=== PATIENT | male | born 1975 | race Caucasian/White ===

== ENCOUNTER 2017-05-02 17:00 | Inpatient (IN) | payer OTHER ==
[2017-05-01 20:35] VITALS: BP 152/90
[~2017-05-02] VITALS: Ht 182.9 cm; Wt 139.9 kg
--- NOTE | 2017-05-02 17:00 | NUR ---
PT BIB [facility]. PT HAD RT SIDED NECK SURGERY WITH BONE GRAFT FROM LT HIP. SURGERY WAS AT 0630AM AND PT'S BP WAS NOT STABLE IN THE RECOVERY. PT REC'D 0.5MG DILAUDID AT 1349 DURING RECOVERY. PT ARRIVED IN C-COLLAR AND HAS A DRAINAGE FROM THE NECK. PT WENT TO ROOM #4 AND WAS PLACED ON THE MONITOR AND CONTINUOUS PULSE OX. VSS.
--- NOTE | 2017-05-02 17:00 | NUR ---
HEMOVAC DRAINAGE NOTED ON PT'S WOUND.
--- NOTE | 2017-05-02 17:15 | NUR ---
400ML YELLOW URINE REMOVED FROM WILDE BAG.
[2017-05-02] MEDS ORDERED: HYDROMORPHONE INJ 2 MG/ML DISP.SYRIN ONE ×2 (17:28→18:51)
--- NOTE | 2017-05-02 17:29 | NUR ---
PT WAS PLACED ON 2L O2 VIA NC. PT'S O2 SAT WAS 92% -95% ON RA.
--- NOTE | 2017-05-02 17:29 | NUR ---
PT REC'D MEDICATION ORDERED.
[2017-05-02] MEDS ORDERED: HYDROMORPHONE 1 MG/1 ML DISP.SYRIN IV ONE (17:30)
--- NOTE | 2017-05-02 18:10 | NUR ---
DR. CHRISTINE IS AT THE BEDSIDE SPEAKING TO THE PT AND HIS FAMILY.
--- NOTE | 2017-05-02 18:22 | NUR ---
PAGED CHEESE PACKER PANEL DR WHITE
[2017-05-02] MEDS ORDERED: ACET1TAB14 PO (18:29)
[2017-05-02] MEDS ORDERED: GABA-534 PO (18:29)
[2017-05-02] MEDS ORDERED: LANS15CA5 PO (18:29)
[2017-05-02] MEDS ORDERED: DAPA10TA PO (18:29)
[2017-05-02] MEDS ORDERED: LISI-607 PO (18:29)
[2017-05-02] MEDS ORDERED: CYCL5TAB PO (18:29)
[2017-05-02] MEDS ORDERED: HYDROMORPHONE INJ 2 MG/ML DISP.SYRIN IV ONE (18:30)
--- NOTE | 2017-05-02 18:36 | NUR ---
CALLED NURSING SUP. FOR MS BED
--- NOTE | 2017-05-02 18:45 | NUR ---
1000ML YELLOW URINE OUTPUT REMOVED FROM WILDE BAG.
--- NOTE | 2017-05-02 18:46 | NUR ---
CXRAY IN PROGRESS AT THE BEDSIDE.
[2017-05-02 18:50] LABS: BASOPHILS # (AUTO) 0.1 /CMM (0.0-0.2); BASOPHILS % (AUTO) 0.3 % (0.0-2.0); EOSINOPHILS % (AUTO) 0.1 % (0.0-6.0); HEMATOCRIT 49 % (39-51); HEMOGLOBIN 16.6 g/dL (13.5-17.5); LYMPHOCYTES # (AUTO) 0.6 /CMM (0.8-4.8); LYMPHOCYTES % (AUTO) 3.8 % (20.0-44.0); MEAN CORPUSCULAR HEMOGLOBIN 31 PG (26.0-33.0); MEAN CORPUSCULAR HGB CONC 34 g/dl (31.0-36.0); MEAN CORPUSCULAR VOLUME 92 fL (80-96); MONOCYTES # (AUTO) 0.1 /CMM (0.1-1.30); MONOCYTES % (AUTO) 0.8 % (2.0-12.0); NEUTROPHILS # (AUTO) 16.2 /CMM (1.8-8.9); PLATELET COUNT (AUTO) 234 /CMM (150-450); RED BLOOD CELL COUNT(AUTO) 5.37 MIL/uL (4.5-6.0)
--- NOTE | 2017-05-02 18:50 | NUR ---
DR. WHITE IS AT THE BEDSIDE.
[2017-05-02] MEDS ORDERED: GABAPENTIN 100 MG CAPSULE ONE (18:51)
[2017-05-02 18:54] LABS: CALCIUM, SERUM 9.7 mg/dL (8.5-10.1); CREATININE 1.2 mg/dL (0.6-1.3); POTASSIUM 4.5 mmol/L (3.5-5.1)
--- NOTE | 2017-05-02 18:57 | NUR ---
PT REC'D MEDICATION ORDERED.
[2017-05-02] MEDS ORDERED: MAGNESIUM HYDROXIDE 30 ML UDC PO PRN (19:00)
[2017-05-02] MEDS ORDERED: ONDANSETRON HCL/PF 4 MG/2 ML VIAL IVP PRN (19:00)
[2017-05-02] MEDS ORDERED: ACETAMINOPHEN 325 MG TABLET PO PRN (19:00)
[2017-05-02] MEDS ORDERED: Z GUARD REMEDY 2 OZ OINT TP PRN (19:00)
[2017-05-02] MEDS ORDERED: MAG HYDROX/AL HYDROX/SIMETH 30 ML UDC PO PRN (19:00)
[2017-05-02] MEDS ORDERED: HYDROCODONE/APAP 5/325MG 1 EACH TABLET PO PRN (19:00)
[2017-05-02] MEDS ORDERED: DEXTROSE 50%-WATER 50 ML DISP.SYRIN IV PRN (19:00)
--- NOTE | 2017-05-02 19:14 | NUR ---
REPORT GIVEN TO HANNAH GIBSON
--- NOTE | 2017-05-02 19:33 | NUR ---
BED 119-2
--- NOTE | 2017-05-02 19:43 | NUR ---
Report given to Yani YOUNG for admission and [place].
[2017-05-02] MEDS ORDERED: hydrALAZINE HCL IV 20 MG VIAL IV PRN (20:00)
--- NOTE | 2017-05-02 20:29 | NUR ---
Transferred patient to floor no incident noted, family at bedside. Endorsed to RN.
--- NOTE | 2017-05-02 20:40 | NUR ---
RN ADMITTING NOTES RECEIVED PATIENT FROM ER VIA [facility]AN WITH FAMILY AT BEDSIDE. PATIENT IS FROM [facility] FOR HIGHER LEVEL OF CARE AND CLOSE MONITORING, PATIENT IS S/P ANTERIOR CERVICAL DISCECTOMY AND FUSION WITH INSTRUMENTATION OF C5-C6 AND C6-C7 WITH BONE GRAFT TAKEN FROM THE LEFT HIP. PATIENT ADMITTED WITH C-COLLAR IN PLACE, HEMOVAC ON POSTERO-LATERAL OF THE NECK DRAINING SANGUINEOUS FLUID; WITH INTACT SURGICAL DRESSINGS ON NECK AND L HIP, NO SOILAGE NOTED, INTACT AND KEPT CLEAN. PATIENT IS ALERT AND ORIENTED. C/O PAIN/DISCOMFORT ON NECK AND L HIP WITH TRANSFER. REPOSITIONED PATIENT COMFORTABLY, SAFETY ENSURED. ORIENTED TO UNIT PROTOCOLS. PATIENT WITH NO OTHER SKIN BREAKDOWN NOTED. FAMILY AT BEDSIDE. UPDATED WITH PLAN OF CARE NEEDED. PATIENT'S VS MONITORED AND DOCUMENTED. PATIENT PLACED ON TELE DUE TO RECEIVED REPORT FROM ER THAT PATIENT IS ST 110-120s, WITH BP OF 157/90 AND PATIENT WITH ADMITTING DIAGNOSIS OF ACCELERATED HTN. WILL MONITOR CLOSELY.
[2017-05-02] MEDS: IV NS 0.9% 1,000 ML IV SCH (21:22)
[2017-05-02] MEDS: METOPROLOL TARTRATE 25 MG TABLET PO SCH (21:22)
[2017-05-02] MEDS: BLOOD SUGAR DIAGNOSTIC 1 EACH STRIP VI SCH (21:24)
[2017-05-02] MEDS: *INSULIN REGULAR(HUMULIN R)HUM 100 UNIT/ML VIAL SQ PRN (21:25)
[2017-05-02] MEDS: HYDROMORPHONE INJ 2 MG/ML DISP.SYRIN IV PRN (21:26)
--- NOTE | 2017-05-02 21:30 | NUR ---
RN NOTES HS MEDS GIVEN ORDERED. IVF STARTED ORDERED ON THE PATIENT'S L HAND, FLUSHED AND PATENT. PATIENT ALSO MEDICATED WITH DILAUDID FOR C/O 01/30 ON NECK AND L HIP PAIN. PATIENT'S BS CHECKED AND NOTED TO BE 131. PATIENT REFUSED INSULIN, PER PATIENT HE DOES NOT USE INSULIN. AND PATIENT REPORTS THAT HE HAS NOT EATEN SINCE 4PM YESTERDAY. SNACKS GIVEN AT THIS TIME, SOFT DIET INITIATED FOR S/P SURGERY THIS AM. PATIENT ABLE TO TOLERATE, NO ASPIRATION NOTED.
[2017-05-02 21:35] VITALS: BP 152/90
[2017-05-02] MEDS ORDERED: ZOLPIDEM TARTRATE 5 MG TABLET PO PRN (22:00)
[2017-05-02] MEDS: HYDROCODONE/APAP 10/325MG 1 EA TABLET PO PRN (22:42)
--- NOTE | 2017-05-02 22:45 | NUR ---
RN NOTES PATIENT WAS SLEEPING COMFORTABLY POST DILAUDID ADMINISTRATION WHEN PATIENT WOKE UP CRYING AND COMPLAINING OF CHEST PAIN AT 2230. PATIENT IMMEDIATELY ASSESSED, VS: 162/90, 124, 92% ON 2LPM OF O2 VIA NC. PATIENT REPORTS NON-RADIATING MIDSTERNAL CHEST PAIN. TITRATED O2 TO PATIENT'S COMFORT, WITH HELP. REASSURANCE PROVIDED TO PATIENT, FAMILY AT BEDSIDE. ADMINISTERED NORCO 10/325 PRN. WILL MONITOR FOR EFFECTIVENESS. CALLED AND SPOKE WITH JET LERMA DNP. UPDATED OF THE PATIENT'S CONDITION WITH ORDERS OBTAIN TO KEEP PATIENT ON TELEMETRY AND CHECK PATIENT'S TROPONIN IN 4HOURS. ORDERS NOTED AND CARRIED OUT. PATIENT UPDATED OF PLAN OF CARE.
[2017-05-03] VITALS (7 sets, daily range): BP systolic 118–139; BP diastolic 68–88
[2017-05-03] MEDS: LORAZEPAM INJ 2 MG/ML VIAL IV PRN ×2 (00:04→21:56)
[2017-05-03 03:19] LABS: BASOPHILS % (AUTO) 0.1 % (0.0-2.0); HEMATOCRIT 46 % (39-51); HEMOGLOBIN 15.5 g/dL (13.5-17.5); LYMPHOCYTES # (AUTO) 1.4 /CMM (0.8-4.8); LYMPHOCYTES % (AUTO) 8.6 % (20.0-44.0); MEAN CORPUSCULAR HEMOGLOBIN 31 PG (26.0-33.0); MEAN CORPUSCULAR HGB CONC 34 g/dl (31.0-36.0); MEAN CORPUSCULAR VOLUME 93 fL (80-96); MONOCYTES # (AUTO) 0.5 /CMM (0.1-1.30); MONOCYTES % (AUTO) 3.3 % (2.0-12.0); PLATELET COUNT (AUTO) 219 /CMM (150-450); RDW COEFFICIENT OF VARIATION 14.8 (11.5-15.0); RED BLOOD CELL COUNT(AUTO) 4.96 MIL/uL (4.5-6.0); WHITE BLOOD COUNT (AUTO) 15.9 K/uL (4.3-11.0)
[2017-05-03 03:33] LABS: CALCIUM, SERUM 9.5 mg/dL (8.5-10.1); CREATININE 1.1 mg/dL (0.6-1.3); MAGNESIUM 2.3 mg/dL (1.8-2.4); PHOSPHORUS 4.1 mg/dL (2.5-4.9); POTASSIUM 4.2 mmol/L (3.5-5.1)
[2017-05-03] MEDS: HYDROMORPHONE INJ 2 MG/ML DISP.SYRIN IV PRN ×3 (03:49→19:39)
--- NOTE | 2017-05-03 06:35 | NUR ---
RN CLOSING NOTES PATIENT INTERMITTENTLY SLEPT THROUGH THE NIGHT, ATIVAN PRN GIVEN WITH HELP FOR THE PATIENT, PER PATIENT, HE WAS ABLE TO SLEEP FOR 1-2HOURS POST ATIVAN. PATIENT'S TROPONIN <0.017, PATIENT WITH NO FURTHER COMPLAIN OF CHEST PAIN. PATIENT MEDICATED WITH DILAUDID PRN ORDERED, WITH HELP. PATIENT SLEEPING COMFORTABLY AT THIS TIME. ON 2LPM OF O2 VIA NC, NO DISTRESS AND DISCOMFORT. SR ON TELE WITH HR AT 87-96. F/C INTACT AND DRAINING WELL. NEEDS ANTICIPATED AND MET. SAFETY AND COMFORT ENSURED. C-COLLAR IN PLACE, HEMOVAC DRAINING WITH SANGUINOUS FLUID. CALL LIGHT IN REACH. WILL ENDORSE ACCORDINGLY FOR CONTINUITY OF CARE.
--- NOTE | 2017-05-03 07:30 | NUR ---
RN AM NOTES PATIENT AAO X 4, C COLLAR IN PLACE, S/P ANTERIOR CERVICAL DISCKEKTOMY AND FUSION WITH INSTRUMENTATION, S/P BONE GRAFT SURGERY [ FROM HIP GRAFT TO NECK]. ALL PROCEDURES DONE AT [facility]. SURGICAL SITE WITH HEMO VAC DRAIN IN PLACE, SANGUINOUS DRAINAGE. ON 2 LPM O2 NC, ON AND OFF, TELEMETRY READS SINUS TACH 105, C/O TOLERABLE PAIN TO NECK AREA. NS AT 75 ML/HR INFUSING TO LEFT HAND G20, SITE CLEAR. CALL LIGHT WITHIN REACH, BED LOW LOCKED, AT BEDSIDE.
[2017-05-03] MEDS: BLOOD SUGAR DIAGNOSTIC 1 EACH STRIP VI SCH ×4 (08:06→21:53)
[2017-05-03] MEDS: PANTOPRAZOLE 40 MG TABLET.DR PO SCH (08:06)
--- NOTE | 2017-05-03 08:06 | NUR ---
RN NOTES ACCUCHECK DONE. BS 124 MG/DL. NO INSULIN COVERAGE GIVEN.
[2017-05-03] MEDS: GABAPENTIN 300 MG CAPSULE PO SCH ×3 (09:18→17:09)
[2017-05-03] MEDS: METOPROLOL TARTRATE 25 MG TABLET PO SCH ×2 (09:19→17:11)
[2017-05-03] MEDS: LISINOPRIL (5MG) 5 MG TABLET PO SCH (09:19)
[2017-05-03] MEDS: CYCLOBENZAPRINE 10 MG TABLET PO SCH ×2 (09:19→17:08)
[2017-05-03] MEDS: IV NS 0.9% 1,000 ML IV SCH (11:00)
--- NOTE | 2017-05-03 11:09 | NUR ---
RN NOTES ACCUCHECK DONE. BS 128 MG/DL. NO INSULIN COVERAGE GIVEN.
[2017-05-03] MEDS: FUROSEMIDE 40 MG/4 ML VIAL IV SCH ×2 (12:02→21:55)
--- NOTE | 2017-05-03 12:02 | NUR ---
KITCHEN WORK SUPERVISOR NOTES CHRISTOPHER DOWNS AT BEDSIDE AND ORDERED FOR STAT LASIX IV
[2017-05-03] MEDS: INSULIN REGULAR, HUMAN 100 UNIT/ML 3 ML VIAL SQ PRN (17:22)
--- NOTE | 2017-05-03 17:22 | NUR ---
TRAVELING ELECTRICIAN NOTES ACCUCHECK DONE. BS 160 MG/DL. ADMINISTERED 2 UNITS HUM R PER SS.
--- NOTE | 2017-05-03 18:36 | NUR ---
RN CLOSING NOTES PATIENT RESTING COMFORTABLY, AAO X 4, C COLLAR IN PLACE, S/P ANTERIOR CERVICAL DISKECTOMY AND FUSION WITH INSTRUMENTATION, S/P BONE GRAFT SURGERY [ FROM HIP GRAFT TO NECK] 05/02/17. ALL PROCEDURES DONE AT [facility]. SURGICAL SITE WITH HEMO VAC DRAIN IN PLACE, SANGUINOUS DRAINAGE. ON 2 LPM O2 NC, ON AND OFF, TELEMETRY READS SINUS TACH 112, C/O TOLERABLE PAIN TO NECK AREA. NS AT 75 ML/HR INFUSING TO LEFT HAND G20, SITE CLEAR. CALL LIGHT WITHIN REACH, BED LOW LOCKED, AT BEDSIDE. ALL NEEDS MET. NO OTHER SIGNIFICANT CHANGE IN CONDITION. PM CARE DONE. WILL ENDORSE TO NEXT SHIFT FOR KEKE. TOTAL URINE OUTPUT WILDE CATH 5725 ML.
--- NOTE | 2017-05-03 19:15 | NUR ---
RN INITIAL NOTES PATIENT IS ALERT AND ORIENTED. FAMILY AT BEDSIDE. PATIENT COMPLAINING OF NECK PAIN AND L HIP PAIN, 01/30, PATIENT REQUESTED FOR DILAUDID FOR PAIN MANAGEMENT, WILL MEDICATE PATIENT NEEDED. ON 2LPM OF O2 VIA NC, NO DISTRESS AND DISCOMFORT. ST ON TELE WITH HR AT 115-120s. F/C INTACT AND DRAINING WELL. NEEDS ANTICIPATED AND MET. SAFETY AND COMFORT ENSURED. C-COLLAR IN PLACE, HEMOVAC DRAINING WITH SANGUINOUS FLUID. CALL LIGHT IN REACH. WILL ENDORSE ACCORDINGLY FOR CONTINUITY OF CARE.
[2017-05-03] MEDS: *INSULIN REGULAR(HUMULIN R)HUM 100 UNIT/ML VIAL SQ PRN (22:18)
[2017-05-04] VITALS: BP 126/78
[2017-05-04 04:00] VITALS: BP 134/76
--- NOTE | 2017-05-04 06:41 | NUR ---
RN CLOSING NOTES PATIENT IN BED, SLEEPING COMFORTABLY, RESPIRATION IS EVEN AND UNLABORED WITH NO DISTRESS. ST ON TELE MONITOR WITH HR IN THE 110s. C-COLLAR IN PLACE. SURGICAL DRESSING ON NECK AREA AND L HIP REMAINS INTACT WITH NO SOILAGE NOTED. HEMOVAC IN PLACE, DRAINING WITH SANGUINOUS FLUID, 50cc OUTPUT FOR THE SHIFT. F/C INTACT AND DRAINING WELL WITH CLEAR YELLOW URINE. ASSISTED WITH ADLS NEEDED, SAFETY AND COMFORT ENSURED. BED IN LOW AND LOCKED POSITION. CALL LIGHT IN REACH. PATIENT'S AT BEDSIDE. WILL ENDORSE ACCORDINGLY FOR CONTINUITY OF CARE.
--- NOTE | 2017-05-04 07:30 | NUR ---
ROOM SERVICE WAITER OPENING RECEIVED PATIENT A/XO4 STATES NO PAIN AT THIS TIME HOWEVER HE HAS BEEN GETTING ON AND OFF AGAIN HEADACHES. WILL MONITOR. NO SOB, DIFFICULTY BREATHING AT THIS TIME. PATIENT STATES WHEN HE LAYS SUPINE INCREASED EFFORT OF BREATHING NOTED. STABLE ON 2LPM NC. WILDE IN PLACE DRAINING WELL. ALL NEEDS IN REACH. AT BEDSIDE. PATIENT STABLE AT THIS TIME. DRAIN TO LEFT NECK IN PLACE AND DRY. NO DRAINAGE FROM DRAIN; WILL F/U WITH SURGEON FOR REMOVAL. PATIENT BED LOWERED AND LOCKED, RAILS UPX3 FOR SAFETY AND WILL ROUND Q2H OR LESS PER NEEDS. HOB AT 30 FOR COMFORT
[2017-05-04 08:00] VITALS: BP 138/98
--- NOTE | 2017-05-04 08:00 | NUR ---
RN NOTES, RECEIVED PATIENT FROM GALE YOUNG, ENDORSED THAT PATIENT IS IN PAIN RIGHT NOW, WILL ADDRESS PAIN, ALSO ENDORSED THAT F/C NEED TO BE REMOVED, SPOKE WITH PATIENT AND PER PATIENT HE REQUESTED THAT THE F/C WILL DC IN THE MORNING, HE STATES THAT HE DOESN'T WANT TO GET UP OR WAKE UP IN THE MORNING TO USE THE RESTROOM, EXPLAINED TO RESIDENT THAT HE CAN HAVE URINAL AT BEDSIDE, STILL HE STATES THAT DOESN'T WANT TO WAKE UP DURING THE NIGHT, WILL ENDORSE NO EXT SHIFT.
[2017-05-04] MEDS: BLOOD SUGAR DIAGNOSTIC 1 EACH STRIP VI SCH ×4 (09:29→21:03)
[2017-05-04] MEDS: GABAPENTIN 300 MG CAPSULE PO SCH ×3 (09:30→18:09)
[2017-05-04] MEDS: PANTOPRAZOLE 40 MG TABLET.DR PO SCH (09:31)
[2017-05-04] MEDS: METOPROLOL TARTRATE 25 MG TABLET PO SCH ×3 (09:31→18:10)
[2017-05-04] MEDS: LISINOPRIL (5MG) 5 MG TABLET PO SCH (09:31)
[2017-05-04] MEDS: CYCLOBENZAPRINE 10 MG TABLET PO SCH ×2 (09:31→18:09)
[2017-05-04] MEDS: HYDROCODONE/APAP 10/325MG 1 EA TABLET PO PRN (09:34)
[2017-05-04] MEDS: INSULIN REGULAR, HUMAN 100 UNIT/ML 3 ML VIAL SQ PRN ×3 (09:38→18:15)
[2017-05-04] MEDS: FUROSEMIDE 40 MG/4 ML VIAL IV SCH ×2 (09:39→21:03)
[2017-05-04 12:00] VITALS: BP 120/89
[2017-05-04 12:17] LABS: TROPONIN I < 0.017 ng/mL (0.00-0.056)
[2017-05-04 12:45] LABS: CHOLESTEROL 223 mg/dL (<200); HDL CHOLESTEROL 44 mg/dL (40-60); LDL 151 mg/dL (0-99); THYROID STIMULATING HORMONE 0.764 uIU/mL (0.358-3.74); TRIGLYCERIDES 139 mg/dL (30-150)
--- NOTE | 2017-05-04 13:30 | NUR ---
GEOMAGNETICIAN NOTES PATIENT DOES NOT WANT TO TITRATE OXYGEN AT THIS TIME. REQUESTING TO KEEP 2LPM NC ON. WILL MONITOR
[2017-05-04 14:09] LABS: MAGNESIUM 2.5 mg/dL (1.8-2.4); PHOSPHORUS 3.3 mg/dL (2.5-4.9)
--- NOTE | 2017-05-04 14:38 | NUR ---
ASSEMBLY LINE SUPERVISOR NOTES PATIENT IS NOT WANTING REPOSITIONING. EDUCATED ON SKIN CARE PRESSURE SORE AREAS AND PATIENT STATES UNDERSTANDING. EDUCATED TO GET INTO CHAIR TO OFFLOAD TURN IN BED. PATIENT STATES [facility]ACE IS HURTING OCCIPITAL AREA. MEPILEX APPLIED TO OFFLOAD HEAD. EDUCATED AGAINTO GET OUT OF BED AND OR TURN. NOTIFIED PATIENT IF NEEDING ASSISTANCE TO PLEASE CALL.
[2017-05-04 16:00] VITALS: BP 116/81
--- NOTE | 2017-05-04 17:43 | NUR ---
SUPERINTENDENT POLICE NOTES PER FAMILY PATIENT SLEEPING. THEY WILL NOTIFY WHEN AWAKE TO CHECK SUGAR/ CRIMINAL RECORDS TECHNICIAN
--- NOTE | 2017-05-04 18:54 | NUR ---
SPRAY PAINTER CLOSING PATIENT STABLE NO COMPLICATIONS NOTED. ALL DUE MEDS GIVEN AND ALL NEEDS MET. PATIENT AMBULATED TODAY WITH MIN ASSIST. PER SURGEON OK TO TAKE C COLLAR OFF WHILE IN BED. SURGEON D/C'D HEMOVAC ON LEFT NECK NO DRAINAGE NOTED. PATIENT STATES PAIN CONTROLLED WITH PRN MEDICATIONS. ADVISED PATIENT ABOUT CONSTIPATION AND NORCO. PATIENT STATES HE WILL TAKE PRN ONCE WILDE CATH IS OUT. MESSAGE TO DR WHITE TO SEE WHEN HE WOULD LIKE WILDE CATH OUT. PER PATIENT HE DOES NOT WANT ANY PAIN MEDICATIONS AT THIS TIME. CARE ENDORSED TO RN FOR KEKE
[2017-05-04] MEDS ORDERED: GUAIFENESIN 300 MG/15 ML UDC PO PRN (19:00)
--- NOTE | 2017-05-04 19:22 | NUR ---
BANANA RIPENING ROOM SUPERVISOR NOTES PER DR CHRISTOPHER ALVARADO TO REMOVE WILDE CATH
--- NOTE | 2017-05-04 19:29 | NUR ---
SAFETY ANALYST INITIAL NOTE PT RECEIVED RESTING IN BED WITH FAMILY AT BEDSIDE. A/O X4 AND ABLE TO MAKE NEEDS KNOWN. ON 2L OF O2 VIA NC AND SATURATING WELL. BREATHING REGULAR, EVEN AND UNLABORED. TELE- SINUS TACH 102. IV L HAND #20 CLEAN, DRY, INTACT AND FLUSHING WELL. WILDE CATHETER IN PLACE AND DRAINING BY GRAVITY. INFORMED IN REPORT TO D/C WILDE CATHETER. ORDERS WILL BE CARRIED OUT. CALL LIGHT WITHIN REACH. WILL CONTINUE TO MONITOR.
[2017-05-04 20:00] VITALS: BP 120/77
--- NOTE | 2017-05-04 20:40 | NUR ---
RN NOTE TRANSFERRED CARE TO REHANA YOUNG
[2017-05-04] MEDS: HYDROMORPHONE INJ 2 MG/ML DISP.SYRIN IV PRN (21:00)
[2017-05-04] MEDS: *INSULIN REGULAR(HUMULIN R)HUM 100 UNIT/ML VIAL SQ PRN (21:26)
[2017-05-05] VITALS: BP 114/76
[2017-05-05] MEDS: METOPROLOL TARTRATE 25 MG TABLET PO SCH ×3 (01:14→12:28)
[2017-05-05 04:00] VITALS: BP 107/68
[2017-05-05] MEDS: HYDROMORPHONE INJ 2 MG/ML DISP.SYRIN IV PRN (06:26)
[2017-05-05 06:36] LABS: BASOPHILS % (AUTO) 0.2 % (0.0-2.0); EOSINOPHILS # (AUTO) 0.1 /CMM (0.0-0.7); EOSINOPHILS % (AUTO) 0.8 % (0.0-6.0); HEMATOCRIT 53 % (39-51); HEMOGLOBIN 17.7 g/dL (13.5-17.5); LYMPHOCYTES # (AUTO) 2.5 /CMM (0.8-4.8); LYMPHOCYTES % (AUTO) 14.1 % (20.0-44.0); MEAN CORPUSCULAR HEMOGLOBIN 31 PG (26.0-33.0); MEAN CORPUSCULAR HGB CONC 34 g/dl (31.0-36.0); MEAN CORPUSCULAR VOLUME 93 fL (80-96); MONOCYTES % (AUTO) 5.7 % (2.0-12.0); NEUTROPHILS # (AUTO) 14.2 /CMM (1.8-8.9); NEUTROPHILS % (AUTO) 79.2 % (43.0-81.0); PLATELET COUNT (AUTO) 249 /CMM (150-450); RED BLOOD CELL COUNT(AUTO) 5.68 MIL/uL (4.5-6.0)
--- NOTE | 2017-05-05 06:50 | NUR ---
INSURANCE CHECKER NOTES, PATIENT IN BED SLEEPING BUT AROUSABLE TO VERBAL STIMULI, BREATHING EVEN AND UNLABORED NO S/S OF ACUTE DISTRESS OR SOB NOTED AT THIS TIME, C/O PAIN EARLIER AND MEDICATION FOR PAIN ADMINISTERED ORDERED, F/C STILL IN PLACE, PER PATIENT WANT TO BE REMOVE TODAY IN THE MORNING, EXPLAIN RISK AND BENEFITS, STILL REQUESTED TO KEEP IT IN PLACE, KEPT DRY AND CLEAN, NO BM TONIGHT, MOM GIVEN LAST NIGHT, BED LOCKED AND IN LOWEST POSITION, CALL LIGHT W/I REACH, WILL ENDORSE CARE TO NEXT SHIFT.
[2017-05-05 06:55] LABS: ALANINE AMINOTRANSFERASE 52 U/L (12-78); ALBUMIN 3.6 g/dL (3.4-5.0); ALKALINE PHOSPHATASE 109 U/L (46-116); ASPARTATE AMINOTRANSFERASE 28 U/L (15-37); BILIRUBIN,TOTAL 1.1 mg/dL (0.2-1.0); CALCIUM, SERUM 10.2 mg/dL (8.5-10.1); CARBON DIOXIDE 29 mmol/L (21-32); CHLORIDE 101 mmol/L (98-107); CREATININE 1.3 mg/dL (0.6-1.3); GLUCOSE 146 mg/dL (74-106); MAGNESIUM 2.7 mg/dL (1.8-2.4); PHOSPHORUS 3.5 mg/dL (2.5-4.9); POTASSIUM 4.3 mmol/L (3.5-5.1); SODIUM SERUM 138 mmol/L (136-145); TOTAL PROTEIN, SERUM 8.2 g/dL (6.4-8.2); UREA NITROGEN, BLOOD 31 mg/dL (7-18)
[2017-05-05 07:03] LABS: TROPONIN I < 0.017 ng/mL (0.00-0.056)
--- NOTE | 2017-05-05 07:34 | NUR ---
CUSTODY OFFICER OPENING RECEIVED PATIENT A/XO4 STATES PAIN CONTROLLED AT THIS TIME. NO SOB, DIFFICULTY BREATHING AT THIS TIME. PATIENT STATES WHEN HE LAYS SUPINE INCREASED EFFORT OF BREATHING NOTED. STABLE ON 2LPM NC. WILDE IN PLACE DRAINING WELL; PATIENT REFUSED LAST NIGHT TO HAVE FOELY CATH TAKEN OUT. EDUCATED ON; DAUGHTER AT BEDSIDE. PATIENT STABLE AT THIS TIME. DRESSING TO MEDIAL NECT AND LEFT LOWER ABDOMEN INTACT FROM SURGERY. NO S/S INFECTION, DRAINAGE. PATIENT BED LOWERED AND LOCKED, RAILS UPX3 FOR SAFETY AND WILL ROUND Q2H OR LESS PER NEEDS. HOB AT 30 FOR COMFORT
[2017-05-05 08:00] VITALS: BP 117/86
[2017-05-05] MEDS: FUROSEMIDE 40 MG/4 ML VIAL IV SCH (08:28)
[2017-05-05] MEDS: CYCLOBENZAPRINE 10 MG TABLET PO SCH (08:28)
[2017-05-05] MEDS: GABAPENTIN 300 MG CAPSULE PO SCH ×2 (08:29→12:27)
[2017-05-05] MEDS: BLOOD SUGAR DIAGNOSTIC 1 EACH STRIP VI SCH ×2 (08:29→12:28)
[2017-05-05] MEDS: PANTOPRAZOLE 40 MG TABLET.DR PO SCH (08:30)
[2017-05-05] MEDS: LISINOPRIL (5MG) 5 MG TABLET PO SCH (08:30)
[2017-05-05] MEDS: INSULIN REGULAR, HUMAN 100 UNIT/ML 3 ML VIAL SQ PRN ×2 (08:36→12:35)
--- NOTE | 2017-05-05 10:00 | NUR ---
SPIRITUAL CARE COORDINATOR NOTES REMOVED WILDE CATH PER MD ORDER. NO COMPLICATIONS. CATHETER TIP INTACT. KAREN CARE COMPLETED
[2017-05-05 12:00] VITALS: BP 117/76
[2017-05-05 12:28] VITALS: BP 116/81
--- NOTE | 2017-05-05 13:50 | NUR ---
HISTOLOGIST TECHNOLOGIST NOTES PATIENT AMBULATING WITH MIN ASSIST. BP AND OXYGEN STABLE WITH ACTIVITY. PATIENT HAS DR WHITE'S CARD AND STATES HE WILL MAKE AN APPOINTMENT IN 1 WEEK TO SEE [facility].
--- NOTE | 2017-05-05 14:12 | NUR ---
MILL ATTENDANT NOTES PATIENT URINATED NO COMPLICATIONS. PER DAUGHTER PATIENT SLEEPING AT THIS TIME. WILL NOTIFY WHEN HE WAKES UP
--- NOTE | 2017-05-05 15:44 | NUR ---
SEMICONDUCTOR BONDERCRAB BACKER PATIENT STABLE. EDUCATED ON DC MATERIAL AND STATED UNDERSTANDING. ALL QUESTIONS ANSWERED. C COLLAR IN PLACE AND FAMILY AT SIDE. PATIENT SIGNED DC MATERIAL. IV REMOVED PRESSURE AND DRESSING APPLIED NO BLEEDING NOTED. ALL DUE MEDS GIVEN AND ALL NEEDS MET. PATIENT WALKED TO PRIVATE VEHICLE PER REQUEST IN STABLE CONDITION AND ASSISTED BY MYSELF AND FAMILY. PATIENT LEFT IN STABLE CONDITION NO COMPLICATIONS NOTED
== END 2017-05-05 15:50 | disposition home or self-care (01) | DRG 640 ==
LOC: ER 17:02 → MEDSG1 19:46 → TELE1 05-03 02:31
PROVIDERS: ADMIT Internal Medicine; ATTEND Internal Medicine
DX: E87.70 Fluid overload, unspecified (principal); E43 Unspecified severe protein-calorie malnutrition; R65.10 Systemic inflammatory response syndrome (SIRS) of non-infectious origin without acute organ dysfunction; E66.01 Morbid (severe) obesity due to excess calories; G62.9 Polyneuropathy, unspecified; Z68.41 Body mass index [BMI] 40.0-44.9, adult; I10 Essential (primary) hypertension; E11.9 Type 2 diabetes mellitus without complications; K21.9 Gastro-esophageal reflux disease without esophagitis; Z98.1 Arthrodesis status; Z79.899 Other long term (current) drug therapy; Z79.4 Long term (current) use of insulin; M47.812 Spondylosis without myelopathy or radiculopathy, cervical region
CPT/HCPCS: 36415; 71010-TC; 80048-TC; 80053-TC; 80061-TC; 82306; 82962-TC; 83735-TC; 84100-TC; 84439-TC; 84443-TC; 84484-TC; 85025-TC; 87081-TC; 93307-TC; A4606; J1170; J1815; J1940; J2060; J7030; Z7610

== ENCOUNTER 2017-05-12 12:31 | Outpatient (CLI) | payer OTHER ==
[~2017-05-12 12:31] MED LIST: ACET1TAB14 PO; CYCL5TAB PO; DAPA10TA PO; GABA-534 PO; LANS15CA13 PO; LISI-607 PO
[2017-05-12 12:46] VITALS: BP 136/101
== END 2017-05-12 23:59 | disposition home or self-care (01) ==
LOC: MSC 12:31
PROVIDERS: ATTEND Internal Medicine
DX: I10 Essential (primary) hypertension (principal); E11.42 Type 2 diabetes mellitus with diabetic polyneuropathy; K21.9 Gastro-esophageal reflux disease without esophagitis; M47.892 Other spondylosis, cervical region; E66.01 Morbid (severe) obesity due to excess calories; E43 Unspecified severe protein-calorie malnutrition; Z68.41 Body mass index [BMI] 40.0-44.9, adult; Z98.890 Other specified postprocedural states; Z79.899 Other long term (current) drug therapy